=== PATIENT | male | born 1985 | race Caucasian/White ===

== ENCOUNTER → 2024-02-22 10:10 | Outpatient (REF) | payer BC, SELFPAY ==
[2024-02-22 12:04] LABS: HDL Cholesterol 57 mg/dl; LDL Cholesterol, Calculated 155 mg/dl; Total Cholesterol 232 mg/dl (50-199); Triglyceride 102 mg/dl (10-149); Very Low Density Lipoprotein 20 mg/dl (0-30)
[2024-02-22 12:11] LABS: Glycohemoglobin (HgbA1c) 5.4 % (4.0-5.6)
== END ==
LOC: REG 10:10
PROVIDERS: ATTENDING PHYSICIAN Student in an Organized Health Care Education/Training Program
DX: E78.1 Pure hyperglyceridemia (principal); R73.03 Prediabetes
CPT/HCPCS: 36415; 80061; 83036

== ENCOUNTER → 2024-04-30 06:16 | Day surgery (SDC) | payer BC, SELFPAY | LOC: GI 06:16 | PROVIDERS: ATTENDING PHYSICIAN Internal Medicine | DX: Z12.11 Encounter for screening for malignant neoplasm of colon (principal) | CPT/HCPCS: G0121 ==

== ENCOUNTER → 2025-05-22 09:08 | Outpatient (REF) | payer BC, SELFPAY ==
[2025-05-22 10:07] LABS: Hematocrit 47.1 % (39.0-52.0); Hemoglobin 15.8 g/dL (13.0-18.0); Mean Corp Hgb Conc. 33.5 g/dL (33.0-37.0); Mean Corpuscular Volume 85.6 fL (80.0-94.0); Nucleated Red Blood Cells % 0 % (-); Platelet Count 203 10^3/uL (130-400); Red Cell Dist. Width 13.0 % (11.5-14.5)
[2025-05-22 11:19] LABS: ALT (SGPT) 31 U/L (0-50); AST (SGOT) 28 U/L (17-59); Albumin 5.0 g/dl (3.5-5.0); Alkaline Phosphatase 77 U/L (38-126); Blood Urea Nitrogen 21 mg/dl (9-20); Calcium 9.7 mg/dl (8.4-10.2); Carbon Dioxide 30 mmol/L (22-30); Chloride 98 mmol/L (98-107); Glucose 99 mg/dl (70-99); HDL Cholesterol 54 mg/dl; LDL Cholesterol, Calculated 162 mg/dl; Potassium 4.5 mmol/L (3.5-5.1); Sodium 137 mmol/L (135-145); Total Protein 8.5 g/dl (6.3-8.2); Very Low Density Lipoprotein 33 mg/dl (0-30); eGFR > 60.00
[2025-05-22 11:32] LABS: Glycohemoglobin (HgbA1c) 5.4 % (4.0-5.9)
== END ==
LOC: REG 09:08
PROVIDERS: ATTENDING PHYSICIAN Student in an Organized Health Care Education/Training Program
DX: Z00.00 Encounter for general adult medical examination without abnormal findings (principal); E78.5 Hyperlipidemia, unspecified; R73.03 Prediabetes; Z68.32 Body mass index [BMI] 32.0-32.9, adult; K76.0 Fatty (change of) liver, not elsewhere classified; R63.5 Abnormal weight gain
CPT/HCPCS: 36415; 80053; 80061; 83036; 84443; 85025